=== PATIENT | male | born 1960 | race Caucasian/White ===

== ENCOUNTER 2018-01-03 15:09 | Inpatient (IN) | payer MEDICAID ==
[~2018-01-03] VITALS: Ht 180.3 cm; Wt 69.5 kg
[~2018-01-03 15:09] MED LIST: OMEP20CA10 PO
[2018-01-03 16:07] LABS: BASOPHILS % (AUTO) 0.2 % (0-1); EOSINOPHILS # (AUTO) 0.2 X10'3 (0-0.9); EOSINOPHILS % (AUTO) 1.2 % (0-6); MEAN CORPUSCULAR HEMOGLOBIN 32.2 PG (27.0-31.0); MEAN CORPUSCULAR HGB CONC 34.9 % (33.0-36.5); MEAN CORPUSCULAR VOLUME 92.4 FL (78-98); MEAN PLATELET VOLUME 6.6 FL (7.4-10.4); MONOCYTES # (AUTO) 0.6 X10'3 (0-0.9); MONOCYTES % (AUTO) 5.2 % (2-12); NEUTROPHILS # (AUTO) 10.4 X10'3 (1.8-7.7); NEUTROPHILS % (AUTO) 85.4 % (42-75); PLATELET COUNT 193 X10'3 (140-440); RED BLOOD COUNT 4.98 X10'6 (4.70-6.10); RED CELL DISTRIBUTION WIDTH 13.6 % (11.5-14.5); WHITE BLOOD COUNT 12.2 X10'3 (4.5-11.0)
[2018-01-03 16:15] LABS: PROTHROMBIN TIME 10.7 SECONDS (9.0-12.0)
[2018-01-03 16:16] LABS: CLARITY,URINE CLEAR (Clear); COLOR,URINE YELLOW (Yellow); GLUCOSE, URINE NEGATIVE (Neg); KETONES,URINE NEGATIVE (Neg); LEUKOCYTE ESTERASE ,URINE NEGATIVE (Neg); NITRITES, URINE NEGATIVE (Neg); OCCULT BLOOD,URINE NEGATIVE (Neg); PROTEIN,URINE TRACE mg/dl (Neg); UA COLLECTION TYPE CLN CATCH MIDSTREAM
[2018-01-03 16:24] LABS: ALANINE AMINOTRANSFERASE 37 U/L (12-78); ALBUMIN 3.4 G/DL (3.4-5.0); ALBUMIN/GLOBULIN RATIO 0.8 (1.1-1.5); ALKALINE PHOSPHATASE 85 IU/L (46-116); AMYLASE 72 U/L (25-115); ANION GAP 8 (8-16); ASPARTATE AMINO TRANSFERASE 27 U/L (10-37); BILIRUBIN,TOTAL 0.5 MG/DL (0.1-1.0); BLOOD UREA NITROGEN 7 MG/DL (7-18); BUN/CREATININE RATIO 6.9 (5.4-32.0); CALCIUM 8.9 MG/DL (8.5-10.1); CHLORIDE 101 MMOL/L (99-107); CREATININE 1.01 MG/DL (0.60-1.10); GLUCOSE 126 MG/DL (70-104); LIPASE 158 U/L (73-393); POTASSIUM 3.8 MMOL/L (3.5-5.1); SODIUM 139 MMOL/L (135-145); TOTAL CARBON DIOXIDE 30.2 MMOL/L (24-32); TOTAL PROTEIN 7.5 G/DL (6.4-8.2); eGFR 76 ML/MIN
[2018-01-03 16:25] LABS: AMORPHOUS PHOSPHATES 2+; BACTERIA,URINE NONE SEEN /HPF (Neg); RBC,URINE NONE SEEN /HPF (0-2); SQUAMOUS EPITHELIAL CELL,UR FEW /LPF (FEW); WBC,URINE 0-4 /HPF (0-4)
[2018-01-03] MEDS ORDERED: ondansetron/PF 4mg/2ml inj IV ONE (16:45)
[2018-01-03] MEDS ORDERED: morphine 4 MG/ML inj SYRINge IV ONE ×3 (16:45→18:45)
[2018-01-03] MEDS ORDERED: normal saline 1000ml 1,000 ML IV ONE (16:45)
[2018-01-03] MEDS ORDERED: pantoprazole 40 MG vial IV ONE (17:45)
[2018-01-03] MEDS ORDERED: magnesium 2GM in 50ml NS 50 ML IV PRN (20:30)
[2018-01-03] MEDS ORDERED: ondansetron/PF 4mg/2ml inj IV PRN (20:30)
[2018-01-03] MEDS ORDERED: potassium Cl 40MEQ/NS 500ml 500 ML IV PRN ×2 (20:30)
[2018-01-03] MEDS ORDERED: magnesium hydroxide 30ml (MOM) UD suspension PO PRN (20:30)
[2018-01-03] MEDS ORDERED: potassium Cl 20 mEq SR tablet PO PRN ×2 (20:30)
[2018-01-03] MEDS ORDERED: magnesium Cl slow-release 64mg tablet PO PRN (20:30)
[2018-01-03] MEDS ORDERED: mag hydrox/Alum hydrox/simeth 30ml oral suspension PO PRN (20:30)
[2018-01-03] MEDS ORDERED: acetaminophen 325mg tablet PO PRN (20:30)
[2018-01-03] MEDS ORDERED: magnesium 4gm in 100ml NS 100 ML IV PRN (20:30)
[2018-01-03] MEDS: normal saline 1000ml 1,000 ML IV SCH (21:31)
[2018-01-03] MEDS ORDERED: ALB0.5UD IH (22:52)
[2018-01-03] MEDS: pantoprazole 40MG/NS 100ML BAG 100 ML IV SCH (23:35)
[2018-01-04] VITALS: BP 119/59
[2018-01-04] MEDS ORDERED: HYDROmorphone inj. 0.5 MG/0.5 ML DISP.SYRIN IV ONE (00:10)
[2018-01-04] MEDS: pantoprazole 40MG/NS 100ML BAG 100 ML IV SCH (01:00)
[2018-01-04] MEDS ORDERED: HYDROmorphone 1 mg/ml syringe IV ONE (05:30)
[2018-01-04] MEDS ORDERED: HYDROmorphone inj. 0.5 MG/0.5 ML DISP.SYRIN ONE (05:48)
[2018-01-04 05:58] LABS: BASOPHILS % (AUTO) 0.3 % (0-1); EOSINOPHILS # (AUTO) 0.2 X10'3 (0-0.9); EOSINOPHILS % (AUTO) 2.3 % (0-6); HEMATOCRIT 41.6 % (42.0-52.0); HEMOGLOBIN 14.5 g/dl (14.0-17.9); LYMPHOCYTES # (AUTO) 1.7 X10'3 (1.1-4.8); LYMPHOCYTES % (AUTO) 15.7 % (21-51); MEAN CORPUSCULAR HGB CONC 34.7 % (33.0-36.5); MEAN CORPUSCULAR VOLUME 92.1 FL (78-98); MEAN PLATELET VOLUME 7.1 FL (7.4-10.4); MONOCYTES # (AUTO) 0.6 X10'3 (0-0.9); MONOCYTES % (AUTO) 5.4 % (2-12); NEUTROPHILS # (AUTO) 8.1 X10'3 (1.8-7.7); NEUTROPHILS % (AUTO) 76.3 % (42-75); PLATELET COUNT 184 X10'3 (140-440); RED BLOOD COUNT 4.52 X10'6 (4.70-6.10); RED CELL DISTRIBUTION WIDTH 13.6 % (11.5-14.5); WHITE BLOOD COUNT 10.6 X10'3 (4.5-11.0)
[2018-01-04] MEDS ORDERED: pantoprazole IV 80 MG in normal saline 100ml IV soln 100 ML IV SCH (06:10)
[2018-01-04 06:25] LABS: ALBUMIN 2.9 G/DL (3.4-5.0); ANION GAP 7 (8-16); BLOOD UREA NITROGEN 7 MG/DL (7-18); BUN/CREATININE RATIO 6.5 (5.4-32.0); CALCIUM 8.3 MG/DL (8.5-10.1); CHLORIDE 105 MMOL/L (99-107); CREATININE 1.07 MG/DL (0.60-1.10); GLUCOSE 96 MG/DL (70-104); MAGNESIUM 1.7 MG/DL (1.5-2.4); POTASSIUM 3.9 MMOL/L (3.5-5.1); SODIUM 140 MMOL/L (135-145); TOTAL CARBON DIOXIDE 27.7 MMOL/L (24-32); eGFR 71 ML/MIN
[2018-01-04 07:00] VITALS: BP 131/67
[2018-01-04] MEDS ORDERED: K and/or MAG REPLACEMENT MC SCH (08:00)
[2018-01-04] MEDS ORDERED: heparin, porcine 5000 units/ml vial SQ SCH (08:00)
[2018-01-04] MEDS ORDERED: enoxaparin 40mg/0.4ml syringe SQ SCH (08:00)
[2018-01-04] MEDS: normal saline 1000ml 1,000 ML IV SCH (08:40)
[2018-01-04 11:00] VITALS: BP 124/81
== END 2018-01-04 16:24 | disposition home or self-care (01) | DRG 241 ==
LOC: ER 15:10 → ED HOLD 20:29 → SUR 3N 23:00
PROVIDERS: ADMIT Internal Medicine; ATTEND Family Medicine
DX: K29.00 Acute gastritis without bleeding (principal); F20.9 Schizophrenia, unspecified; F32.9 Major depressive disorder, single episode, unspecified; J44.9 Chronic obstructive pulmonary disease, unspecified; R03.0 Elevated blood-pressure reading, without diagnosis of hypertension; D72.829 Elevated white blood cell count, unspecified; I25.10 Atherosclerotic heart disease of native coronary artery without angina pectoris; F12.90 Cannabis use, unspecified, uncomplicated; F17.210 Nicotine dependence, cigarettes, uncomplicated; K21.9 Gastro-esophageal reflux disease without esophagitis; Z87.11 Personal history of peptic ulcer disease; Z88.8 Allergy status to other drugs, medicaments and biological substances
CPT/HCPCS: 36415; 74176; 80048; 80053; 81001; 82150; 83690; 83735; 85025; 85610; 87070; 96361; 96374; 96375; 96376; 99285; C9113; J1170; J1650; J2270; J2405; J7030

== ENCOUNTER 2019-03-06 07:20 | Emergency (ER) | payer MEDICAID ==
[~2019-03-06] VITALS: Ht 170.2 cm; Wt 65.0 kg
[~2019-03-06 07:20] MED LIST changes: +ALB0.5UD IH; -OMEP20CA10 PO; +OMEP20CA11 PO
[2019-03-06] MEDS ORDERED: morphine 4 MG/ML inj SYRINge IV PRN (07:30)
[2019-03-06] MEDS ORDERED: ondansetron/PF 4mg/2ml inj IV ONE (07:30)
[2019-03-06] MEDS ORDERED: normal saline 1000ML IV soln IVB ONE (07:30)
[2019-03-06 07:58] LABS: BASOPHILS # (AUTO) 0.1 X10'3 (0-0.2); BASOPHILS % (AUTO) 0.7 % (0-1); EOSINOPHILS # (AUTO) 0.3 X10'3 (0-0.9); EOSINOPHILS % (AUTO) 3.3 % (0-6); HEMATOCRIT 48.1 % (42.0-52.0); HEMOGLOBIN 16.6 g/dl (14.0-17.9); LYMPHOCYTES # (AUTO) 1.3 X10'3 (1.1-4.8); LYMPHOCYTES % (AUTO) 16.3 % (21-51); MEAN CORPUSCULAR HEMOGLOBIN 32.8 PG (27.0-31.0); MEAN CORPUSCULAR HGB CONC 34.4 g/dL (33.0-36.5); MEAN CORPUSCULAR VOLUME 95.2 FL (78-98); MEAN PLATELET VOLUME 6.9 FL (7.4-10.4); MONOCYTES # (AUTO) 0.5 X10'3 (0-0.9); MONOCYTES % (AUTO) 6.6 % (2-12); NEUTROPHILS # (AUTO) 5.7 X10'3 (1.8-7.7); NEUTROPHILS % (AUTO) 73.1 % (42-75); PLATELET COUNT 188 X10'3 (140-440); RED BLOOD COUNT 5.05 X10'6 (4.70-6.10); RED CELL DISTRIBUTION WIDTH 14.1 % (11.5-14.5); WHITE BLOOD COUNT 7.8 X10'3 (4.5-11.0)
[2019-03-06 08:22] LABS: ALANINE AMINOTRANSFERASE 26 U/L (12-78); ALBUMIN 3.5 G/DL (3.4-5.0); ALBUMIN/GLOBULIN RATIO 0.9 (1.1-1.5); ALKALINE PHOSPHATASE 78 IU/L (46-116); ANION GAP 5 (8-16); ASPARTATE AMINO TRANSFERASE 19 U/L (10-37); BILIRUBIN,TOTAL 0.4 MG/DL (0.1-1.0); BLOOD UREA NITROGEN 24 MG/DL (7-18); BUN/CREATININE RATIO 19.8 (5.4-32.0); CALCIUM 9.1 MG/DL (8.5-10.1); CHLORIDE 105 MMOL/L (99-107); CREATININE 1.21 MG/DL (0.60-1.10); GLUCOSE 109 MG/DL (70-104); LIPASE 168 U/L (73-393); SODIUM 140 MMOL/L (135-145); TOTAL CARBON DIOXIDE 29.9 MMOL/L (24-32); TOTAL PROTEIN 7.5 G/DL (6.4-8.2); eGFR 62 ML/MIN
[2019-03-06] MEDS ORDERED: HYDROcodone/acetaminophen 5mg/325mg tablet PO ONE (09:15)
[2019-03-06 09:28] VITALS: BP 157/91
== END 2019-03-06 09:30 | disposition home or self-care (01) ==
LOC: ER 07:20
DX: R10.13 Epigastric pain (principal); R11.2 Nausea with vomiting, unspecified; I25.119 Atherosclerotic heart disease of native coronary artery with unspecified angina pectoris; J45.909 Unspecified asthma, uncomplicated; K21.9 Gastro-esophageal reflux disease without esophagitis; F12.90 Cannabis use, unspecified, uncomplicated; F15.90 Other stimulant use, unspecified, uncomplicated; Z90.49 Acquired absence of other specified parts of digestive tract; Z88.8 Allergy status to other drugs, medicaments and biological substances; Z79.899 Other long term (current) drug therapy
CPT/HCPCS: 36415; 80053; 83690; 85025; 96361; 96374; 96375; 99283; J2270; J2405; J7030

== ENCOUNTER 2019-09-29 22:08 | Emergency (ER) | payer MEDICAID ==
[~2019-09-29] VITALS: Ht 177.8 cm; Wt 75.0 kg
[~2019-09-29 22:08] MED LIST changes: +OMEP-297 PO; -OMEP20CA11 PO
--- NOTE | 2019-09-29 22:46 | NUR ---
pt with stable vs and 5 out6 of 10 pain to his right forearm abscess. Awaiting ER Provider.
[2019-09-29] MEDS ORDERED: DOXY100C43 PO (23:31)
[2019-09-29 23:42] VITALS: BP 134/85
== END 2019-09-30 | disposition home or self-care (01) ==
LOC: ER 22:08
DX: L03.113 Cellulitis of right upper limb (principal); I25.10 Atherosclerotic heart disease of native coronary artery without angina pectoris; J45.909 Unspecified asthma, uncomplicated; K21.9 Gastro-esophageal reflux disease without esophagitis; F12.90 Cannabis use, unspecified, uncomplicated; F15.90 Other stimulant use, unspecified, uncomplicated; Z90.49 Acquired absence of other specified parts of digestive tract; Z98.890 Other specified postprocedural states; Z87.11 Personal history of peptic ulcer disease; Z88.4 Allergy status to anesthetic agent; Z79.899 Other long term (current) drug therapy
CPT/HCPCS: 99283

== ENCOUNTER 2022-06-17 15:58 | Emergency (ER) | payer MEDICAID ==
[~2022-06-17] VITALS: Ht 177.8 cm; Wt 72.7 kg
[~2022-06-17 15:58] MED LIST changes: -OMEP-297 PO; +OMEP20CA15 PO
[2022-06-17 16:23] LABS: BASOPHILS # (AUTO) 0.1 X10'3 (0-0.2); EOSINOPHILS # (AUTO) 0.1 X10'3 (0-0.9); EOSINOPHILS % (AUTO) 1.4 % (0-6); HEMATOCRIT 49.9 % (42.0-52.0); HEMOGLOBIN 17.5 g/dl (14.0-17.9); LYMPHOCYTES # (AUTO) 1.8 X10'3 (1.1-4.8); LYMPHOCYTES % (AUTO) 22.6 % (21-51); MEAN CORPUSCULAR HEMOGLOBIN 33.8 PG (27.0-31.0); MEAN CORPUSCULAR VOLUME 96.6 FL (78-98); MEAN PLATELET VOLUME 6.9 FL (7.4-10.4); MONOCYTES # (AUTO) 0.5 X10'3 (0-0.9); NEUTROPHILS # (AUTO) 5.3 X10'3 (1.8-7.7); PLATELET COUNT 143 X10'3 (140-440); RED BLOOD COUNT 5.16 X10'6 (4.70-6.10); RED CELL DISTRIBUTION WIDTH 15.2 % (11.5-14.5); WHITE BLOOD COUNT 7.9 X10'3 (4.5-11.0)
[2022-06-17 16:47] LABS: ALANINE AMINOTRANSFERASE 23 U/L (12-78); ALBUMIN 3.9 G/DL (3.4-5.0); ALKALINE PHOSPHATASE 101 IU/L (46-116); ANION GAP 8 (8-16); ASPARTATE AMINO TRANSFERASE 24 U/L (10-37); BILIRUBIN,TOTAL 0.6 MG/DL (0.1-1.0); BLOOD UREA NITROGEN 30 MG/DL (7-18); BUN/CREATININE RATIO 17.9 (5.4-32.0); CALCIUM 9.5 MG/DL (8.5-10.1); CHLORIDE 105 MMOL/L (99-107); CREATININE 1.68 MG/DL (0.60-1.10); GLUCOSE 114 MG/DL (70-104); SODIUM 140 MMOL/L (135-145); TOTAL CARBON DIOXIDE 27.4 MMOL/L (24-32); TOTAL PROTEIN 7.9 G/DL (6.4-8.2); eGFR 42 ML/MIN
[2022-06-17 16:48] LABS: POTASSIUM 4.3 MMOL/L (3.5-5.1)
[2022-06-17] MEDS ORDERED: aspirin 325mg tablet PO ONE (18:15)
[2022-06-17 19:16] VITALS: BP 153/103
== END 2022-06-17 19:18 | disposition home or self-care (01) ==
LOC: ER 15:59
DX: R07.89 Other chest pain (principal); Z20.822 Contact with and (suspected) exposure to COVID-19; I10 Essential (primary) hypertension; J45.909 Unspecified asthma, uncomplicated; K21.9 Gastro-esophageal reflux disease without esophagitis; F17.200 Nicotine dependence, unspecified, uncomplicated; F12.90 Cannabis use, unspecified, uncomplicated; F15.20 Other stimulant dependence, uncomplicated; Z88.4 Allergy status to anesthetic agent; Z90.49 Acquired absence of other specified parts of digestive tract
CPT/HCPCS: 36415; 71045; 80053; 83880; 84484; 85025; 87635; 93005; 99285; C9803

== ENCOUNTER 2023-02-23 12:45 | Inpatient (IN) | payer MEDICAID ==
[~2023-02-23] VITALS: Ht 172.7 cm; Wt 75.0 kg
[2023-02-23 14:05] LABS: BASOPHILS # (AUTO) 0.1 X10'3 (0-0.2); BASOPHILS % (AUTO) 0.9 % (0-1); EOSINOPHILS # (AUTO) 0.2 X10'3 (0-0.9); EOSINOPHILS % (AUTO) 3.2 % (0-6); HEMATOCRIT 45.6 % (42.0-52.0); HEMOGLOBIN 15.8 g/dl (14.0-17.9); LYMPHOCYTES # (AUTO) 1.6 X10'3 (1.1-4.8); LYMPHOCYTES % (AUTO) 25.6 % (21-51); MEAN CORPUSCULAR HEMOGLOBIN 33.3 PG (27.0-31.0); MEAN CORPUSCULAR HGB CONC 34.6 g/dL (33.0-36.5); MEAN CORPUSCULAR VOLUME 96.2 FL (78-98); MEAN PLATELET VOLUME 6.5 FL (7.4-10.4); MONOCYTES # (AUTO) 0.5 X10'3 (0-0.9); MONOCYTES % (AUTO) 8.4 % (2-12); NEUTROPHILS # (AUTO) 3.8 X10'3 (1.8-7.7); NEUTROPHILS % (AUTO) 61.9 % (42-75); PLATELET COUNT 129 X10'3 (140-440); RED BLOOD COUNT 4.74 X10'6 (4.70-6.10); WHITE BLOOD COUNT 6.1 X10'3 (4.5-11.0)
[2023-02-23 14:13] LABS: ALANINE AMINOTRANSFERASE 22 U/L (12-78); ALBUMIN 3.3 G/DL (3.4-5.0); ALBUMIN/GLOBULIN RATIO 0.9 (1.1-1.5); ALKALINE PHOSPHATASE 82 IU/L (46-116); ANION GAP 2 (8-16); ASPARTATE AMINO TRANSFERASE 17 U/L (10-37); BILIRUBIN,TOTAL 0.2 MG/DL (0.1-1.0); BLOOD UREA NITROGEN 18 MG/DL (7-18); BUN/CREATININE RATIO 12.2 (10.0-20.0); CALCIUM 8.6 MG/DL (8.5-10.1); CHLORIDE 104 MMOL/L (99-107); CREATININE 1.48 MG/DL (0.60-1.10); GLUCOSE 117 MG/DL (70-104); SODIUM 137 MMOL/L (135-145); TOTAL CARBON DIOXIDE 31.3 MMOL/L (24-32); eGFR 48 ML/MIN
[2023-02-23] MEDS ORDERED: morphine 4 MG/ML inj SYRINge IV ONE ×2 (14:20→17:25)
[2023-02-23] MEDS ORDERED: ondansetron/PF 4mg/2ml inj IV ONE (14:20)
[2023-02-23] MEDS ORDERED: AMLO-708 PO (14:45)
[2023-02-23] MEDS ORDERED: HYDR12.55 PO (14:45)
[2023-02-23] MEDS ORDERED: magnesium Cl slow-release 64mg tablet PO PRN (15:05)
[2023-02-23] MEDS ORDERED: PERFLUTREN PROTEIN-A MICROSPHR (Optison) 0.22 MG/ML 3ML VIAL IV ONE (15:05)
[2023-02-23] MEDS ORDERED: magnesium 2GM in 50ml NS 50 ML IV PRN (15:05)
[2023-02-23] MEDS ORDERED: magnesium 4gm in 100ml NS 100 ML IV PRN (15:05)
[2023-02-23] MEDS ORDERED: potassium Cl 40MEQ/1/2NS 520ml 520 ML IV PRN (15:05)
[2023-02-23] MEDS ORDERED: potassium Cl 20 mEq SR tablet PO PRN ×2 (15:05)
[2023-02-23 16:10] LABS: MAGNESIUM 2.1 MG/DL (1.5-2.4)
[2023-02-23 16:19] LABS: POTASSIUM 4.4 MMOL/L (3.5-5.1)
[2023-02-23 17:00] VITALS: BP 167/118
--- NOTE | 2023-02-23 17:15 | NUR ---
pt arrived to floor having 10/10 pain in his mid abdomen. no chest pain. obtained vital signs. bp is 167/118. Called Dr. Landeros. Ordered one time dose of 4mg morphine. Will see pt. [id number] Dr. Landeros at bedside. will order labs and follow up. pt is more comfortable after morphine dose. obtained nasal swab for MRSA and helped reposition for comfort. will endorse to NOC shift.
--- NOTE | 2023-02-23 17:22 | NUR ---
Notified Dr. Landeros about severe abdominal pain and high bp. MD to see pt. Received orders for pain and will carry out.
[2023-02-23 18:00] VITALS: BP 152/78
[2023-02-23 18:27] LABS: LIPASE 589 U/L (73-393)
[2023-02-23] MEDS: K and/or MAG REPLACEMENT MC SCH (20:00)
[2023-02-23] MEDS: acetaminophen 325mg tablet PO PRN (20:40)
[2023-02-23] MEDS: ondansetron/PF 4mg/2ml inj IV PRN (20:40)
[2023-02-23] MEDS: normal saline 1000ml 1,000 ML IV SCH (23:00)
--- NOTE | 2023-02-23 23:00 | NUR ---
Pt. is awake alert oriented requesting pm meal. Pt. advised is NPO for now discussed current illness. Pt. has a peripheral IV NS infusing. Able to ambulated to BR voids without difficulty. Medicated for abd pain and nausea x2 overnight tolerated well no adverse effects.
[2023-02-23 23:52] VITALS: BP 145/86
[2023-02-24 02:42] VITALS: BP 132/73
[2023-02-24] MEDS: ondansetron/PF 4mg/2ml inj IV PRN (05:14)
[2023-02-24] MEDS: acetaminophen 325mg tablet PO PRN (05:15)
[2023-02-24] MEDS: morphine 2 MG/ML inj. syringe IV PRN ×2 (06:01→20:42)
[2023-02-24 06:55] LABS: BASOPHILS % (AUTO) 0.8 % (0-1); EOSINOPHILS # (AUTO) 0.2 X10'3 (0-0.9); EOSINOPHILS % (AUTO) 3.2 % (0-6); HEMATOCRIT 49.6 % (42.0-52.0); HEMOGLOBIN 16.8 g/dl (14.0-17.9); LYMPHOCYTES # (AUTO) 1.3 X10'3 (1.1-4.8); LYMPHOCYTES % (AUTO) 23.9 % (21-51); MEAN CORPUSCULAR HEMOGLOBIN 32.8 PG (27.0-31.0); MEAN CORPUSCULAR HGB CONC 33.8 g/dL (33.0-36.5); MEAN CORPUSCULAR VOLUME 96.9 FL (78-98); MEAN PLATELET VOLUME 6.2 FL (7.4-10.4); MONOCYTES # (AUTO) 0.4 X10'3 (0-0.9); MONOCYTES % (AUTO) 7.2 % (2-12); NEUTROPHILS # (AUTO) 3.6 X10'3 (1.8-7.7); NEUTROPHILS % (AUTO) 64.9 % (42-75); PLATELET COUNT 137 X10'3 (140-440); RED BLOOD COUNT 5.12 X10'6 (4.70-6.10); RED CELL DISTRIBUTION WIDTH 14.3 % (11.5-14.5); WHITE BLOOD COUNT 5.5 X10'3 (4.5-11.0)
[2023-02-24 06:59] LABS: ALBUMIN 3.1 G/DL (3.4-5.0); ANION GAP 4 (8-16); BLOOD UREA NITROGEN 17 MG/DL (7-18); BUN/CREATININE RATIO 12.5 (10.0-20.0); CALCIUM 8.7 MG/DL (8.5-10.1); CHLORIDE 104 MMOL/L (99-107); CREATININE 1.36 MG/DL (0.60-1.10); GLUCOSE 95 MG/DL (70-104); MAGNESIUM 2.1 MG/DL (1.5-2.4); POTASSIUM 4.3 MMOL/L (3.5-5.1); SODIUM 138 MMOL/L (135-145); TOTAL CARBON DIOXIDE 30.1 MMOL/L (24-32); eGFR 53 ML/MIN
[2023-02-24] MEDS: K and/or MAG REPLACEMENT MC SCH ×2 (08:48→18:56)
[2023-02-24 12:01] VITALS: BP 122/74
[2023-02-24 18:00] VITALS: BP 135/84
--- NOTE | 2023-02-24 18:34 | NUR ---
Patient in room PCU 3012. I have received report from AZAR HINSON and had the opportunity to ask questions and assume patient care.
--- NOTE | 2023-02-24 18:39 | NUR ---
Problems reprioritized. Patient report given, questions answered & plan of care reviewed with Jackelyn HINSON.
[2023-02-24] MEDS: normal saline 1000ml 1,000 ML IV SCH (18:56)
[2023-02-25] MEDS: ondansetron/PF 4mg/2ml inj IV PRN (04:58)
--- NOTE | 2023-02-25 05:23 | NUR ---
Patient agitated, expressed extreme malcontent; mentioned to journalist at midnight that he wished to go [id number] same desire, started ripping tele stickers off after getting zofran for nausea; I asked him what was making him so irritated; he stated he wnted to eat-I told him he cannot d/t his pancreatits and lipase levels. Patient kept ripping off things; I calledMD Kittrick and he saw patient-explained the situation; patient insisted on leaving. MD stated to have him sign AMA form; patient signed release, I escorted him to front door lobby after removing iv. patient left against medical advise. Debora HINSON
== END 2023-02-25 05:15 | disposition left against medical advice (07) | DRG 282 ==
LOC: ER 12:46 → ED HOLD 15:08 → EDBEDREQ 16:01 → PCU 3S 17:03
PROVIDERS: ADMIT Internal Medicine; ATTEND Internal Medicine
DX: K85.90 Acute pancreatitis without necrosis or infection, unspecified (principal); I25.110 Atherosclerotic heart disease of native coronary artery with unstable angina pectoris; F17.210 Nicotine dependence, cigarettes, uncomplicated; J45.909 Unspecified asthma, uncomplicated; F32.A Depression, unspecified; K21.9 Gastro-esophageal reflux disease without esophagitis; Z53.29 Procedure and treatment not carried out because of patient's decision for other reasons; K86.1 Other chronic pancreatitis; F20.9 Schizophrenia, unspecified; I10 Essential (primary) hypertension; I25.2 Old myocardial infarction; Z87.11 Personal history of peptic ulcer disease; Z88.8 Allergy status to other drugs, medicaments and biological substances; Z88.4 Allergy status to anesthetic agent; Z90.49 Acquired absence of other specified parts of digestive tract; Z79.899 Other long term (current) drug therapy
CPT/HCPCS: 36415; 71045; 80048; 80053; 83690; 83735; 83880; 84132; 84484; 85025; 87081; 93005; 93306; 99285; G0378; J2270; J2405; J7030

== ENCOUNTER 2024-01-31 10:17 | Emergency (ER) | payer MEDICAID ==
[~2024-01-31] VITALS: Ht 177.8 cm; Wt 65.1 kg
[~2024-01-31 10:17] MED LIST changes: -ALB0.5UD IH; +AMLO-708 PO; +HYDR12.55 PO; -OMEP20CA15 PO
[2024-01-31 11:31] LABS: BASOPHILS % (AUTO) 0.6 % (0-1); EOSINOPHILS # (AUTO) 0.1 X10'3 (0-0.9); EOSINOPHILS % (AUTO) 1.7 % (0-6); HEMATOCRIT 49.4 % (42.0-52.0); HEMOGLOBIN 16.6 g/dl (14.0-17.9); LYMPHOCYTES # (AUTO) 1.1 X10'3 (1.1-4.8); LYMPHOCYTES % (AUTO) 17.5 % (21-51); MEAN CORPUSCULAR HEMOGLOBIN 32.6 PG (27.0-31.0); MEAN CORPUSCULAR HGB CONC 33.5 g/dL (33.0-36.5); MEAN CORPUSCULAR VOLUME 97.3 FL (78-98); MEAN PLATELET VOLUME 7.2 FL (7.4-10.4); MONOCYTES # (AUTO) 0.7 X10'3 (0-0.9); MONOCYTES % (AUTO) 10.6 % (2-12); NEUTROPHILS # (AUTO) 4.3 X10'3 (1.8-7.7); NEUTROPHILS % (AUTO) 69.6 % (42-75); PLATELET COUNT 118 X10'3 (140-440); RED BLOOD COUNT 5.07 X10'6 (4.70-6.10); RED CELL DISTRIBUTION WIDTH 14.5 % (11.5-14.5); WHITE BLOOD COUNT 6.2 X10'3 (4.5-11.0)
[2024-01-31 12:17] LABS: ALBUMIN 3.4 G/DL (3.4-5.0); ANION GAP 10 (8-16); BLOOD UREA NITROGEN 27 MG/DL (7-18); CALCIUM 8.4 MG/DL (8.5-10.1); CHLORIDE 103 MMOL/L (99-107); GLUCOSE 99 MG/DL (70-104); POTASSIUM 4.4 MMOL/L (3.5-5.1); PRO BRAIN NATRIURETIC PEPTIDE 768 PG/ML (0-125); SODIUM 140 MMOL/L (135-145); TOTAL CARBON DIOXIDE 26.8 MMOL/L (24-32); eCRCL 47 ML/MIN; eGFR 47 ML/MIN
[2024-01-31 14:00] VITALS: TEMP 99
[2024-01-31] MEDS: ipratropium/albuterol 3ml nebule NEB ONE (14:41)
[2024-01-31 14:42] VITALS: PULSE 81; RESP 24; O2SAT 94
[2024-01-31 14:48] VITALS: PULSE 84; RESP 20; O2SAT 99
[2024-01-31] MEDS: predniSONE 20 mg tablet PO ONE (15:10)
[2024-01-31] MEDS: normal saline 1000ml 1,000 ML IV ONE (15:10)
[2024-01-31] MEDS ORDERED: PRED20TA PO (15:20)
[2024-01-31] MEDS ORDERED: ALBU8HFA PO (15:20)
[2024-01-31] MEDS ORDERED: AMOX-580 PO (15:20)
[2024-01-31 16:00] VITALS: BP 153/90; PULSE 103; RESP 23; O2SAT 93
== END 2024-01-31 16:03 | disposition home or self-care (01) ==
LOC: ER 10:17
DX: N17.9 Acute kidney failure, unspecified (principal); F41.9 Anxiety disorder, unspecified; I10 Essential (primary) hypertension; K21.9 Gastro-esophageal reflux disease without esophagitis; F20.9 Schizophrenia, unspecified; F32.A Depression, unspecified; Z88.8 Allergy status to other drugs, medicaments and biological substances; Z79.899 Other long term (current) drug therapy
CPT/HCPCS: 36415; 71046; 80048; 83605; 83880; 84484; 85025; 87040; 93005; 94640; 96360; 99285; J7030; J7512; 94760